=== PATIENT | female | born 1950 | race Caucasian/White ===

== ENCOUNTER → 2021-12-13 | Outpatient (CLI) | payer BC | LOC: MC.RAD 07:00 | DX: N63.10 Unspecified lump in the right breast, unspecified quadrant (principal) ==

== ENCOUNTER → 2022-01-15 | Outpatient (CLI) | payer BC ==
[~2022-01-15] MED LIST: NORCO 325 MG-51 TAB PO; PHARMASSURE ZIN50 MG PO; TURMERIC-TAMAR250 MG PO; VITAMIN D31000 I1 PO; VITAMINC1000TA PO
== END ==
LOC: MC.RAD 01-08 13:00
DX: C50.411 Malignant neoplasm of upper-outer quadrant of right female breast (principal)
CPT/HCPCS: 32604; A9520